=== PATIENT | male | born 1960 | race Asian ===

== ENCOUNTER 2021-10-24 04:41 | Day surgery (SDC) | payer OTHER ==
[2021-10-24 08:46] VITALS: TEMP 98.7
[2021-10-24 09:49] VITALS: BP 115/71; PULSE 94
== END 2021-10-24 09:50 | disposition home or self-care (01) ==
LOC: JASU-ENDO 04:41
PROVIDERS: ATTEND Internal Medicine Gastroenterology
PROC: 0DJD8ZZ Inspection of Lower Intestinal Tract, Via Natural or Artificial Opening Endoscopic (ICD-10-PCS; principal; 2021-10-24 08:00)
DX: Z12.11 Encounter for screening for malignant neoplasm of colon (principal); K63.89 Other specified diseases of intestine